=== PATIENT | male | born 1945 | race Caucasian/White ===

== ENCOUNTER 2023-08-11 06:27 | Day surgery (SDC) | payer MEDICARE, MEDICAID ==
[~2023-08-11] VITALS: Ht 177.8 cm; Wt 85.0 kg
[2023-08-11] MEDS: PROPARACAINE 0.5% OPHTH SOL 15ML OD ONE (06:00)
[~2023-08-11 06:27] MED LIST: AMLO1TAB25 PO; BENZ200C70 PO; BISO10TA14 PO; BUDE10.7 IH; GLIP5TAB20 PO; HYDR-3490 PO; HYDR-3713 PO; JARD1TAB PO; LISI40TA4 PO; NEXI40CA PO; PRAV40TA2 PO; PROA1AER2 INH; SYNT88TA2 PO; TRAD5TAB PO
[2023-08-11] MEDS ORDERED: CEFUROXIME 1MG/0.1ML INTRACAMERAL INJ As Ordered ONE (06:43)
[2023-08-11] MEDS ORDERED: fentaNYL 100 MCG/2 ML INJECTION As Ordered ONE (07:01)
[2023-08-11] MEDS: OFLOXACIN 0.3 % (OCUFLOX) OPTH SOL 5ML OD SCH (07:51)
[2023-08-11] MEDS: TROPICAMIDE 1% OPHTH SOLN 15ML OD SCH (07:51)
[2023-08-11] MEDS: PHENYLEPHRINE 2.5% OPHTH SOL 2ML OD SCH (07:51)
[2023-08-11] MEDS: ATROPINE SULFATE 1% OPHTH SOLN 2ML BTL OD SCH (07:51)
[2023-08-11] MEDS: INSULIN LISPRO (NovoLOG) PER UNIT SC PRN (08:05)
[2023-08-11] MEDS: LIDOCAINE 1% SDV 5ML VIAL As Ordered ONE (08:25)
[2023-08-11] MEDS: TRYPAN BLUE 0.06 % 2.25 ML OPHTH SYR (VISIONBLUE) As Ordered ONE (08:29)
[2023-08-11] MEDS: BSS IRR 500ML/OMIDRIA 4ML IRR BAG (OR ONLY) As Ordered ONE (08:29)
[2023-08-11] MEDS: VISCOAT 40-30MG/ML 0.5ML SYRINGE As Ordered ONE (08:29)
[2023-08-11 08:37] VITALS: BP 173/81; TEMP 98.1; O2SAT 98
== END 2023-08-11 08:52 | disposition home or self-care (01) ==
LOC: M SDC 06:27
PROVIDERS: ATTEND Ophthalmology
DX: H25.11 Age-related nuclear cataract, right eye (principal); H40.811 Glaucoma with increased episcleral venous pressure, right eye; I10 Essential (primary) hypertension; E78.5 Hyperlipidemia, unspecified; E11.9 Type 2 diabetes mellitus without complications; E03.9 Hypothyroidism, unspecified; K21.9 Gastro-esophageal reflux disease without esophagitis; Z87.891 Personal history of nicotine dependence; Z88.5 Allergy status to narcotic agent; J44.9 Chronic obstructive pulmonary disease, unspecified; Z92.21 Personal history of antineoplastic chemotherapy; Z79.84 Long term (current) use of oral hypoglycemic drugs; Z79.899 Other long term (current) drug therapy
CPT/HCPCS: 65820; 66984; A4649; C1889; J0697; J1097; J1815; J3010; V2632

== ENCOUNTER 2023-10-26 07:38 | Day surgery (SDC) | payer MEDICARE, MEDICAID ==
[~2023-10-26] VITALS: Ht 177.8 cm; Wt 86.4 kg
[~2023-10-26 07:38] MED LIST changes: +LR 1,000 ML IV SCH; +MIDAZOLAM INJ 2MG/2ML VIAL As Ordered ONE; +fentaNYL 100 MCG/2 ML INJECTION As Ordered ONE
[2023-10-26] MEDS: FLURBIPROFEN 0.03% OPHTH SOLN 2.5 ML OS SCH (08:06)
[2023-10-26] MEDS: PHENYLEPHRINE 2.5% OPHTH SOL 2ML OS SCH (08:06)
[2023-10-26] MEDS: ATROPINE SULFATE 1% OPHTH SOLN 2ML BTL OS SCH (08:06)
[2023-10-26] MEDS: TETRACAINE 0.5% OPHTH SOLN 4ML OS SCH (08:06)
[2023-10-26] MEDS ORDERED: TRYPAN BLUE 0.06 % 2.25 ML OPHTH SYR (VISIONBLUE) As Ordered ONE (08:13)
[2023-10-26] MEDS: CEFUROXIME 1MG/0.1ML INTRACAMERAL INJ As Ordered ONE (09:45)
[2023-10-26] MEDS: LIDOCAINE 1% SDV 5ML VIAL As Ordered ONE (09:45)
[2023-10-26 09:56] VITALS: BP 136/61; TEMP 96.8; O2SAT 99
== END 2023-10-26 10:12 | disposition home or self-care (01) ==
LOC: M SDC 07:38
PROVIDERS: ATTEND Ophthalmology
DX: H25.12 Age-related nuclear cataract, left eye (principal); H40.1120 Primary open-angle glaucoma, left eye, stage unspecified; I10 Essential (primary) hypertension; E78.5 Hyperlipidemia, unspecified; E11.9 Type 2 diabetes mellitus without complications; E03.9 Hypothyroidism, unspecified; Z79.84 Long term (current) use of oral hypoglycemic drugs; Z79.899 Other long term (current) drug therapy; Z79.51 Long term (current) use of inhaled steroids; Z85.038 Personal history of other malignant neoplasm of large intestine; J44.9 Chronic obstructive pulmonary disease, unspecified; K21.9 Gastro-esophageal reflux disease without esophagitis; Z88.5 Allergy status to narcotic agent
CPT/HCPCS: 66174; 66984; J0697; J2250; J3010; V2632